=== PATIENT | male | born 1995 ===

== ENCOUNTER 2024-02-14 09:19 | Emergency (ER) | payer SELFPAY ==
[2024-02-14] MEDS ORDERED: cefTRIAXone (ROCEPHIN) 500 MG VIAL ONE (10:03)
[2024-02-14] MEDS ORDERED: Azithromycin 250 MG TAB ONE (10:03)
== END 2024-02-14 10:04 | disposition home or self-care (01) ==
LOC: CSHERS 09:19
DX: Z20.2 Contact with and (suspected) exposure to infections with a predominantly sexual mode of transmission (principal)
CPT/HCPCS: 87491; 87591; 96372; 99283; J0696

== ENCOUNTER 2024-03-07 14:43 | Emergency (ER) | payer SELFPAY | END 2024-03-07 15:52 | disposition home or self-care (01) | LOC: CSHERS 14:43 | DX: U07.1 COVID-19 (principal); R11.0 Nausea | CPT/HCPCS: 99283 ==